=== PATIENT | male | born 1960 | race Caucasian/White ===

== ENCOUNTER 2024-03-06 07:05 | Day surgery (SDC) | payer MEDICAID ==
[~2024-03-06] VITALS: Ht 190.5 cm; Wt 90.7 kg
[2024-03-06] MEDS ORDERED: MIDAZOLAM HCL 5 MG/5 ML VIAL ONE ×2 (09:39→09:53)
[2024-03-06] MEDS ORDERED: MEPERIDINE 100 MG INJ. 100 MG/ML VIAL ONE ×2 (09:39→09:53)
[2024-03-06] MEDS ORDERED: DIPHENHYDRAMINE INJ 50 MG/ML VIAL ONE (09:56)
[2024-03-06 10:11] VITALS: O2SAT 97
[2024-03-06 19:21] VITALS: BP_SYST 121; PULSE 73; RESP 12
== END 2024-03-06 11:35 | disposition home or self-care (01) ==
LOC: SDS 07:05 → SMU 07:06 → SDS 11:35
PROVIDERS: ATTEND Internal Medicine Gastroenterology
DX: R19.7 Diarrhea, unspecified (principal); K21.9 Gastro-esophageal reflux disease without esophagitis; D12.2 Benign neoplasm of ascending colon; D12.0 Benign neoplasm of cecum; K29.50 Unspecified chronic gastritis without bleeding; K31.A0 Gastric intestinal metaplasia, unspecified; K31.89 Other diseases of stomach and duodenum; K57.30 Diverticulosis of large intestine without perforation or abscess without bleeding; K64.4 Residual hemorrhoidal skin tags; K64.8 Other hemorrhoids; K44.9 Diaphragmatic hernia without obstruction or gangrene; I10 Essential (primary) hypertension; E78.00 Pure hypercholesterolemia, unspecified; Z79.899 Other long term (current) drug therapy
CPT/HCPCS: 45385; 43239; 88305; 88312; 88313; 99153; 99152; G0378; J1200; J2250; J2175